=== PATIENT | female | born 1955 | race Caucasian/White ===

== ENCOUNTER 2022-03-11 11:06 | Inpatient (IN) | payer MEDICARE, OTHER ==
[2022-03-11] VITALS (9 sets, daily range): BP systolic 128–200
[~2022-03-11] VITALS: Ht 165.1 cm; Wt 59.9 kg
[~2022-03-11 11:06] MED LIST: GLYB2.5T2 PO
--- NOTE | 2022-03-11 11:10 | NUR ---
BROUGHT IN BY [facility], TRIAGED AND AWAITING ER BED AVAILABILITY
--- NOTE | 2022-03-11 11:55 | NUR ---
PT BROUGHT IN BY AMBULANCE - ACLS. PT A&OX3, PT UNABLE TO STATE YEAR. PER EMT REPORT WAS FOUND LAYING ON GROUND BY CAR, POSSIBLE SYNCOPY EPISODE. pT STATES THAT SHE DOES NOT REMEMBER EVENT. PT HAS A HX OF DIABETES, BUT STATES THAT SHE BUT IS NOT ON MEDICATION OTHER THAN NATURAL HERBS. FACIAL TRAUMA NOTED ON RIGHT SIDE OF FACE. PT C/O PAIN IN BACK AND FACE, C-COLLAR IN PLACE.
--- NOTE | 2022-03-11 11:59 | NUR ---
ER Dr. HEREDIA at bedside examining patient.
--- NOTE | 2022-03-11 12:08 | NUR ---
PT IN CT AT THIS TIME.
[2022-03-11] MEDS ORDERED: BACITRACIN 1 GM OINT TP ONE (12:15)
[2022-03-11] MEDS ORDERED: DIPHTH,PERTUSS(ACELL),TET VAC 0.5 ML VIAL (Tdap) I.M. ONE (12:15)
[2022-03-11] MEDS ORDERED: NS 500 ML IV ONE (12:15)
[2022-03-11 12:42] LABS: BASOPHILS # (AUTO) 0.1 K/uL (0.0-0.2); BASOPHILS % (AUTO) 0.8 % (0.0-2.0); EOSINOPHILS # (AUTO) 0.1 K/uL (0.0-0.4); EOSINOPHILS % (AUTO) 0.9 % (0.0-4.0); HEMOGLOBIN 15.5 g/dL (12.0-16.0); LYMPHOCYTES # (AUTO) 0.7 K/uL (1.0-5.5); LYMPHOCYTES % (AUTO) 6.6 % (20.5-51.5); MEAN CORPUSCULAR HEMOGLOBIN 31 pg (27-31); MEAN CORPUSCULAR HGB CONC 33 % (32-36); MEAN CORPUSCULAR VOLUME 92 fL (79.0-98.0); MONOCYTES # (AUTO) 0.5 K/uL (0.0-1.0); MONOCYTES % (AUTO) 5.1 % (1.7-9.3); NEUTROPHILS # (AUTO) 9.4 K/uL (1.8-7.7); NEUTROPHILS % (AUTO) 86.6 % (40.0-70.0); PLATELET COUNT (AUTO) 282 K/uL (130-430); RED CELL DISTRIBUTION WIDTH 14.2 % (9.0-15.0); WHITE BLOOD COUNT (AUTO) 10.9 K/uL (4.8-10.8)
[2022-03-11 13:05] LABS: ANION GAP 14 (5-15); CALCIUM 9.6 mg/dL (8.4-11.0); CHLORIDE 100 mmol/L (98-107); CREATININE 1.27 mg/dL (0.55-1.30); GFR AFRICAN AMERICAN 54 mL/min (>90); GLUCOSE 166 mg/dL (70-99); UREA NITROGEN, BLOOD 23 mg/dL (8-21)
[2022-03-11 13:15] LABS: INR 1.1 (0.8-1.2); PROTHROMBIN TIME 11.6 SECS (9.5-12.5)
[2022-03-11 13:21] LABS: ALANINE AMINOTRANSFERASE 17 U/L (12-78); ALBUMIN 3.8 g/dL (3.4-4.8); ALCOHOL, BLOOD 4 mg/dL (<10); ASPARTATE AMINOTRANSFERASE 20 U/L (10-37); TOTAL BILIRUBIN 0.7 mg/dL (0.0-1.0)
[2022-03-11 13:22] LABS: ACETAMINOPHEN < 1 ug/mL (1-30)
[2022-03-11] MEDS ORDERED: IOHEXOL 350 mgI/mL, 150 ML INFUS..BTL IV ONE (13:48)
--- NOTE | 2022-03-11 13:48 | NUR ---
PT'S DAUGHTER JD REQUESTED CONSULT WITH A SALESPERSON [employer]. LEFT VM.
[2022-03-11] MEDS ORDERED: cefTRIAXone 1 GM IVPB PREMIX 50 ML IV ONE ×2 (14:00→23:54)
[2022-03-11] MEDS ORDERED: LABETALOL HCL 20 MG/4 ML CARTRIDGE IVP ONE (14:15)
--- NOTE | 2022-03-11 14:33 | NUR ---
PT CAME INTO BED [address] BREATHING FROM CT, SIN REQUESTED RT FOR INTUBATION, RT CAME AND MD REQUESTED REPEAT EKG WELL CRASH CART.
[2022-03-11] MEDS ORDERED: fentaNYL CITRATE/PF 100 MCG/2 ML AMP ONE (14:39)
[2022-03-11] MEDS ORDERED: PROPOFOL DRIP 100 ML IV ONE ×4 (14:44→22:15)
[2022-03-11] MEDS ORDERED: fentaNYL CITRATE/PF 100 MCG/2 ML AMP IVP ONE (14:45)
--- NOTE | 2022-03-11 14:57 | NUR ---
1423 ASSISTED INTUBATION BY ER MD HEREDIA. ETT .06/30 AT [facility]. CO2 DETECTOR CHANGED COLOR YELLOW AND BILATERAL BREATH SOUNDS NOTICED. 1530 PATIENT ON VENT SETTINGS WITH AC 16, VT 400, PEEP +5, FIO2 100%. VENT TO RED OUTLET AND ALARMS ARE AUDIBLE. Addendum: 03/11/22 at 1606 by SDRTJC INTUBATION BY MD COLE
[2022-03-11] MEDS ORDERED: PROPOFOL 200MG/ 20ML VIAL (DIPRIVAN) IV ONE (15:00)
--- NOTE | 2022-03-11 15:25 | NUR ---
LATE ENTRY, AT APPROX 1420, PT CAME BACK FROM CT SCAN WITH CONSTANCE DOWNING. NALINI RN WAS NEARBY BED/HALLWAY AND NOTICED THAT HAD AGONAL BREATHING AND EYES ROLLED BACK. PT UNRESPONSIVE AND APNEIC. AIRWAY PROTECTED AND IMMEDIATELY STARTED BAGGING, DR HEREDIA CALLED TO ROOM. RT CALLED AND CRASH CART PLACED IN ROOM. SECOND IV PLACED TO RIGHT ARM. INTUBATED BY DR COEL. ROWAN RICHARD AT BEDSIDE TO LOG INFO. FAMILY AT BEDSIDE TOO.
--- NOTE | 2022-03-11 15:50 | NUR ---
RT HAGAN AT BEDSIDE FOR ABGS
--- NOTE | 2022-03-11 16:09 | NUR ---
1610 TITRATED FIO2 DOWN TO 50% PER ABG RESULTS, PO2 550.1 mmHg.
--- NOTE | 2022-03-11 17:42 | NUR ---
NO ACUTE CHANGES IN CONDITION, LEVOPHED INFUSING VIA PUMP. PT SEDATED, RESPONSIVE TO PAINFUL STIMULI, EYES CLOSED. FAMILY AT BEDSIDE.
--- NOTE | 2022-03-11 19:30 | NUR ---
Pt report received. Pt sedated, intubated with 7.5 cm ETT, vent settings: A/C, 16, 400, 50, 5. PIV RFA patent and secure with Propofol drip at 30 mcg/kg/min. VSS, NAD noted at this time.
--- NOTE | 2022-03-11 19:34 | NUR ---
COVID AND MRSA SAMPLE COLLECTED AND SENT TO LAB
--- NOTE | 2022-03-11 19:50 | NUR ---
B/P 155/91, pt moving BUE. Propofol drip increased to 35 mcg/kg/min.
--- NOTE | 2022-03-11 20:15 | NUR ---
# 14 FR Jimenez catheter with use of sterile technique. Immediate return of 100 cc clear yumiko urine noted. Bedside drainage bag placed below level of bladder. Urine sample collected and sent to lab. Pt tolerated procedure well. Patient unable to toilet self.
--- NOTE | 2022-03-11 20:30 | NUR ---
Pt moving BUE. Propofol drip increased to 40 mcg/kg/min.
--- NOTE | 2022-03-11 20:40 | NUR ---
Opening notes Received report from TRAM Wilkins RN for continuity of care. Patient was transferred to ICU bed 7 at 2039. Patient is intubated and sedated. Patient's vital signs blood pressure 153/109, heart rate 89, respirations 16, and SPO2 100% on mechanical ventilator. Ventilator settings AC 16, tidal volume 400, FIO2 50%, and peep of 5. Propofol running at 40 mcg/kg/min. Jimenez catheter is in place draining to gravity. Bed is locked and in lowest position, fall and safety precautions is in place.
--- NOTE | 2022-03-11 20:40 | NUR ---
Patient will be admitted to care of Dr. Rivas. Admitted to ICU unit. Will go to room 7. Complete and up to date summary report printed. SBAR report to be given at bedside with opportunity for questions.
--- NOTE | 2022-03-11 21:00 | NUR ---
Paged Dr. Medrano for consult
[2022-03-11] MEDS ORDERED: PROPOFOL DRIP 100 ML IV PRN (21:15)
[2022-03-11 21:20] LABS: BILIRUBIN,URINE NEGATIVE (NEGATIVE); CLARITY/URINE CLEAR (CLEAR); COLOR,URINE YELLOW (YELLOW); GLUCOSE,URINE NEGATIVE (NEGATIVE); KETONES,URINE 1+ (NEGATIVE); LEUKOCYTE ESTERASE ,URINE NEGATIVE (NEGATIVE); NITRITE, URINE NEGATIVE (NEGATIVE); PROTEIN URINE 1+ (NEGATIVE); UROBILINOGEN,URINE 0.2 (0.2-1.0)
[2022-03-11 21:26] LABS: BLOOD, URINE TRACE (NEGATIVE)
[2022-03-11 21:29] LABS: BACTERIA,URINE None Seen /HPF (None Seen); MUCUS,URINE None Seen /LPF (None Seen); WBC,URINE 0-3 /HPF (0-3)
[2022-03-11 21:35] LABS: BARBITURATE, URINE NEGATIVE (NEG <=200); BENZODIAZEPINE, URINE NEGATIVE (NEG <=150); CANNABINOID, URINE NEGATIVE (NEG <=50); COCAINE, URINE NEGATIVE (NEG <=150); METHAMPHETAMINES SCREEN,URINE NEGATIVE (NEG <=500); OPIATE, URINE NEGATIVE (NEG <=100); PHENCYCLIDINE SCREEN,URINE NEGATIVE (NEG <=25); UR TRICYCLIC ANTIDEPRESSANTS NEGATIVE (NEG <=300); URINE AMPHETAMINE NEGATIVE (NEG <=500); URINE METHADONE NEGATIVE (NEG <=200); URINE OXYCODONE SCREEN NEGATIVE (NEG <=100); URINE PROPOXYPHENE SCREEN NEGATIVE (NEG <=300)
--- NOTE | 2022-03-11 22:48 | NUR ---
CONSULTATION PAGED/CALLED Reason for Consultation: TIA Person Who was Notified: Colleen Consulting Physician: Casper Supervisor [employer] Fin[employer] Specialty: Cardiology Ordering Physician: Rob
[2022-03-11] MEDS: ENALAPRILAT DIHYDRATE 1.25 MG/ML VIAL IVP PRN (23:18)
[2022-03-11] MEDS ORDERED: IPRATROPIUM/ALBUTEROL SULFATE 3 ML AMPUL.NEB (DUONEB) INH PRN (23:45)
[2022-03-11] MEDS: cefTRIAXone 1 GM in D5W 50 ML IV SCH (23:55)
[2022-03-11] MEDS: D5/0.45 NS 1,000 ML IV SCH (23:56)
[2022-03-12] VITALS (34 sets, daily range): BP systolic 90–196
[2022-03-12] MEDS: PROPOFOL DRIP 100 ML IV PRN ×4 (01:43→21:38)
[2022-03-12 06:17] LABS: BASOPHILS # (AUTO) 0.1 K/uL (0.0-0.2); BASOPHILS % (AUTO) 0.8 % (0.0-2.0); EOSINOPHILS # (AUTO) 0.2 K/uL (0.0-0.4); EOSINOPHILS % (AUTO) 1.5 % (0.0-4.0); LYMPHOCYTES # (AUTO) 1.3 K/uL (1.0-5.5); MEAN CORPUSCULAR HEMOGLOBIN 31 pg (27-31); MEAN CORPUSCULAR HGB CONC 33 % (32-36); MEAN CORPUSCULAR VOLUME 92 fL (79.0-98.0); MONOCYTES # (AUTO) 0.9 K/uL (0.0-1.0); MONOCYTES % (AUTO) 7.6 % (1.7-9.3); NEUTROPHILS # (AUTO) 9.3 K/uL (1.8-7.7); NEUTROPHILS % (AUTO) 79.1 % (40.0-70.0); PLATELET COUNT (AUTO) 236 K/uL (130-430); RED BLOOD CELL COUNT(AUTO) 4.54 MIL/uL (4.2-6.2); RED CELL DISTRIBUTION WIDTH 14.4 % (9.0-15.0); WHITE BLOOD COUNT (AUTO) 11.8 K/uL (4.8-10.8)
[2022-03-12 06:59] LABS: ALBUMIN 3.2 g/dL (3.4-4.8); CALCIUM 8.9 mg/dL (8.4-11.0); CREATININE 1.12 mg/dL (0.55-1.30); TOTAL BILIRUBIN 0.6 mg/dL (0.0-1.0)
[2022-03-12] MEDS: ENALAPRILAT DIHYDRATE 1.25 MG/ML VIAL IVP PRN (07:49)
[2022-03-12] MEDS: PANTOPRAZOLE SODIUM 40 MG/VIAL (PROTONIX) IVP SCH (08:27)
[2022-03-12] MEDS ORDERED: INSULIN REGULAR, HUMAN 100 UNITS/ML, 3 ML VIAL SUBCUT PRN (09:30)
--- NOTE | 2022-03-12 09:57 | NUR ---
Nutrition Note Kitchen is out of Glucerna 1.2; RD recommends Glucerna 1.5 @ 25 mL/hr (goal) for the time being. Pt will be seen for Initial Assessment 2/3. Thanks! NELDA, MPH, RD
[2022-03-12 10:12] LABS: INR 1.1 (0.8-1.2); PROTHROMBIN TIME 11.5 SECS (9.5-12.5)
--- NOTE | 2022-03-12 10:30 | NUR ---
OGT check placement and verified. glucerna1.5@ 25ml/hr started per ordered. keep hob elevated to prevent aspiration.
[2022-03-12] MEDS ORDERED: SUCCINYLCHOLINE CHLORIDE 20 MG/ML(QUELICIN) IVP ONE (11:00)
[2022-03-12] MEDS ORDERED: ETOMIDATE 20 MG/ 10 ML VIAL (AMIDATE) IVP ONE (11:00)
[2022-03-12] MEDS ORDERED: hydrALAZINE HCL 20 MG/ML VIAL IVP ONE (11:45)
[2022-03-12] MEDS: D5/0.45 NS 1,000 ML IV SCH (13:53)
--- NOTE | 2022-03-12 15:00 | NUR ---
patient family is here updated patient current condition and poc. all question, answered.
--- NOTE | 2022-03-12 15:20 | NUR ---
witnessed picc line RN inserted picc line at right upper arm, aseptic technique performed. cxr verified the placement.
[2022-03-12] MEDS: hydrALAZINE HCL 25 MG TABLET PO SCH ×2 (15:21→21:07)
--- NOTE | 2022-03-12 15:45 | NUR ---
Wound Evaluation: Wound Consult ordered for Low Devonte Score. Patient evaluated for a low Devonte score of 13. Patient was obtunded, sedated, intubated, and received in a Taft Bed with an Isoflex NASEEM mattress. Patient needs to be turned in bed. Skin assessment: 1. Right Forehead, Superior to Periorbital area: Abrasion, present on admission wound site has 100% black scab. No odor, no drainage. Periwound intact. Wound measures 4.8 cm x 1.5 cm. Recommend: No dressing needed. Continue to monitor site every shift. 2. Right Upper Cheek, Lateral to Periorbital area: Abrasion, present on admission wound site has 90% light red scar tissue (healed), 10% black scab. No odor, no drainage. Periwound intact. Wound measures 4.8 cm x 5.8 cm. Recommend: Cover light red tissue site with non-adherent (Telfa pad), also tucking Telfa pad underneath. Continue to monitor site every shift. 3. Right Cheek, Inferior and Distal to Ear: Multiple excoriations, present on admission. Site has 100% black linear scabs. No odor, no drainage. Periwound intact. Recommend: No dressing needed. Continue to monitor site every shift. Recommend reposition patient every 2 hours with pillow support. Elevate, off-load and float bilateral heels with 1 pillow lengthwise under each extremity at all times. Offload pressure areas with pillows for pressure re-distribution. Perform skin care and monitor skin integrity Q shift. Use moisture barrier cream on moisture susceptible areas QID and PRN for soiling. Initiate low air-loss therapy by adding an air pump to the mattress.
[2022-03-12] MEDS: INSULIN REGULAR, HUMAN 100 UNITS/ML, 3 ML VIAL (humuLIN R) SUBCUT PRN (18:11)
--- NOTE | 2022-03-12 18:59 | NUR ---
Notes: all needs mets, no s/s of distress, vital signs stable, afebrile. vent setting ac 16, tv 400, fio2 30%, peep 5. saturation 100%, picc line at right upper arm. no swelling or infiltration noted. Addendum: 03/12/22 at 1916 by [employer], ANJEL HOBBS made rounds and s/w family via phone.
[2022-03-12] MEDS: cefTRIAXone 1 GM in D5W 50 ML IV SCH (22:27)
[2022-03-13] VITALS (31 sets, daily range): BP systolic 100–179
[2022-03-13] MEDS: INSULIN REGULAR, HUMAN 100 UNITS/ML, 3 ML VIAL (humuLIN R) SUBCUT PRN ×2 (00:17→05:33)
[2022-03-13] MEDS: D5/0.45 NS 1,000 ML IV SCH ×2 (02:01→14:24)
[2022-03-13] MEDS: PROPOFOL DRIP 100 ML IV PRN ×4 (02:03→23:06)
[2022-03-13] MEDS: ENALAPRILAT DIHYDRATE 1.25 MG/ML VIAL IVP PRN (02:16)
[2022-03-13] MEDS: hydrALAZINE HCL 25 MG TABLET PO SCH ×4 (05:31→23:52)
[2022-03-13 06:14] LABS: BASOPHILS # (AUTO) 0.1 K/uL (0.0-0.2); BASOPHILS % (AUTO) 0.9 % (0.0-2.0); EOSINOPHILS # (AUTO) 0.2 K/uL (0.0-0.4); EOSINOPHILS % (AUTO) 2.3 % (0.0-4.0); HEMATOCRIT 39.9 % (36-48); HEMOGLOBIN 13.5 g/dL (12.0-16.0); LYMPHOCYTES # (AUTO) 1.2 K/uL (1.0-5.5); LYMPHOCYTES % (AUTO) 13.1 % (20.5-51.5); MEAN CORPUSCULAR HEMOGLOBIN 31 pg (27-31); MEAN CORPUSCULAR HGB CONC 34 % (32-36); MEAN CORPUSCULAR VOLUME 90 fL (79.0-98.0); MONOCYTES # (AUTO) 0.6 K/uL (0.0-1.0); NEUTROPHILS # (AUTO) 7.3 K/uL (1.8-7.7); NEUTROPHILS % (AUTO) 77.7 % (40.0-70.0); PLATELET COUNT (AUTO) 177 K/uL (130-430); RED BLOOD CELL COUNT(AUTO) 4.42 MIL/uL (4.2-6.2); RED CELL DISTRIBUTION WIDTH 13.9 % (9.0-15.0); WHITE BLOOD COUNT (AUTO) 9.4 K/uL (4.8-10.8)
[2022-03-13 07:03] LABS: CALCIUM 8.6 mg/dL (8.4-11.0)
--- NOTE | 2022-03-13 07:25 | NUR ---
RECEIVED REPORT FROM NIGHTSHIFT RN, PT IN BED #7, RESTING, NAD, VSS, AROUSABLE, RASS -3. PT AWAITING ADDITIONAL ASSESSMENTS FOR PLAN OF CARE AND DISPOSITION.
[2022-03-13] MEDS: ENOXAPARIN SODIUM 40 MG/0.4 ML SYRINGE SUBCUT SCH (08:23)
[2022-03-13] MEDS: PANTOPRAZOLE SODIUM 40 MG/VIAL (PROTONIX) IVP SCH (08:24)
--- NOTE | 2022-03-13 11:50 | NUR ---
Dietitian Recommendations * Glucerna 1.5 @ 25mL/hr, Prosource 1x/d via OGT Provides (w/ D5 and prop): 1505 kcal, 65 g PRO, 455ml free water Meets: 117% kcal, 90% of lower end PRO, 71% est water needs * Consider FWF 150mL q6h, or per MD * If D5 or Propofol is DC, or pt extubated, please contact RD to re-assess needs GS, MPH, RD Please refer to RD Assessment for further details. Thanks! Addendum: 03/13/22 at [address] Amended: Links added.
--- NOTE | 2022-03-13 12:09 | NUR ---
RT NOTES 1100 Placed pt on SIMV 12, 400VT, +5, PS 10 30% FIO2 per MD Medrano order, f/b by ABG. Pt saturating 100%. 1140 ABG drawn. results reported to ANJEL Manuel. Pt placed back to AC 16. Pt tolerated SIMV trial today. Pt started opening eyes & moving around. will cont to monitor pt.
--- NOTE | 2022-03-13 19:00 | NUR ---
Opening notes Received report from endorsing morning shift RN for continuity of care. Patient is lying in bed with IVF D5 1/2 NS @75 mL/hr and propofol drip @ 35 mcg/kg/min. Patient's family members is at the bedside. Patient's vital signs blood pressure 150/61, heart rate 67, respirations 17, and SPO2 100% on mechanical ventilator. Ventilator settings AC 16, tidal volume 400, FIO2 30%, and peep of 5. Jimenez catheter is in place draining to gravity. Bed is locked and in lowest position, fall and safety precautions is in place.
[2022-03-13] MEDS ORDERED: hydrALAZINE HCL 25 MG TABLET ONE (19:41)
[2022-03-13] MEDS: cefTRIAXone 1 GM in D5W 50 ML IV SCH (23:05)
[2022-03-14] VITALS (35 sets, daily range): BP systolic 115–192
[2022-03-14] MEDS: hydrALAZINE HCL 20 MG/ML VIAL IVP PRN ×3 (01:33→20:31)
[2022-03-14] MEDS: D5/0.45 NS 1,000 ML IV SCH ×2 (02:51→15:46)
[2022-03-14] MEDS: INSULIN REGULAR, HUMAN 100 UNITS/ML, 3 ML VIAL (humuLIN R) SUBCUT PRN ×2 (05:40→12:34)
[2022-03-14] MEDS: hydrALAZINE HCL 25 MG TABLET PO SCH ×4 (05:41→23:50)
[2022-03-14] MEDS: PROPOFOL DRIP 100 ML IV PRN ×3 (06:31→22:23)
--- NOTE | 2022-03-14 07:28 | NUR ---
SBAR REPORT RECEIVED FROM DARRYL HOBBS, ALL CARES ASSUMED. PT INTUBATED AND SEDATED WITH PROPOFOL DRIP. VENT SETTINGS AC 16, 400, 30%, 5. OG TUBE INFUSING TUBE FEEDING. STONER CATHETER DRAINING TO GRAVITY. PT RESTING WITH EYES CLOSED. BED IN LOW AND LOCKED POSITION.
[2022-03-14 07:53] LABS: BASOPHILS # (AUTO) 0.1 K/uL (0.0-0.2); BASOPHILS % (AUTO) 0.6 % (0.0-2.0); EOSINOPHILS # (AUTO) 0.3 K/uL (0.0-0.4); EOSINOPHILS % (AUTO) 2.8 % (0.0-4.0); HEMATOCRIT 38.1 % (36-48); HEMOGLOBIN 12.9 g/dL (12.0-16.0); LYMPHOCYTES # (AUTO) 1.3 K/uL (1.0-5.5); LYMPHOCYTES % (AUTO) 14.5 % (20.5-51.5); MEAN CORPUSCULAR HEMOGLOBIN 31 pg (27-31); MEAN CORPUSCULAR HGB CONC 34 % (32-36); MONOCYTES # (AUTO) 0.5 K/uL (0.0-1.0); NEUTROPHILS # (AUTO) 6.7 K/uL (1.8-7.7); NEUTROPHILS % (AUTO) 76.1 % (40.0-70.0); PLATELET COUNT (AUTO) 170 K/uL (130-430); RED BLOOD CELL COUNT(AUTO) 4.12 MIL/uL (4.2-6.2); RED CELL DISTRIBUTION WIDTH 14.7 % (9.0-15.0); WHITE BLOOD COUNT (AUTO) 8.8 K/uL (4.8-10.8)
[2022-03-14 07:59] LABS: CALCIUM 8.3 mg/dL (8.4-11.0); CREATININE 0.65 mg/dL (0.55-1.30)
[2022-03-14 08:15] LABS: MEAN CORPUSCULAR VOLUME 92 fL (79.0-98.0)
[2022-03-14] MEDS: PANTOPRAZOLE SODIUM 40 MG/VIAL (PROTONIX) IVP SCH (09:21)
[2022-03-14] MEDS: ENOXAPARIN SODIUM 40 MG/0.4 ML SYRINGE SUBCUT SCH (09:22)
--- NOTE | 2022-03-14 09:45 | NUR ---
RT NOTES Pt became agitated when sedation was turned down, Rn will wait for family to be present during CPAP trial, per their request.
--- NOTE | 2022-03-14 10:03 | NUR ---
RT NOTES Charge Kristy called to notify Rt that family arrived and sedation is being titrated. I will be notified once ready for CPAP trials.
--- NOTE | 2022-03-14 10:37 | NUR ---
RT NOTES On low dosage of sedation, Automatic Splicing Machine Operator Kristy said to initiate CPAP now. Vent to CPAP 5 PS 10. No adverse reactions noted. Dtr walked in, was educated on SBT, when asked, dtr stated that pt is an active-heavy smoker, will communicate this information to Rn and charge weigher.
--- NOTE | 2022-03-14 11:37 | NUR ---
RT NOTES After ABG draw, vent back to AC, H.R (100s) and R.R (high 20s) are elevated. Rn at bedside aware.
--- NOTE | 2022-03-14 11:40 | NUR ---
PT WAS ON CPAP TRIAL FOR APPROXIMATELY ONE HOUR. HR AND RR SLOWLY INCREASED, RT DANGELO SWITCHED VENT BACK TO AC MODE. STARTED INCREASING PROPOFOL AFTER PT WAS BACK ON AC MODE.
[2022-03-14] MEDS ORDERED: NICOTINE 14 MG/24 HR PATCH.TD24 TD ONE (12:00)
--- NOTE | 2022-03-14 19:13 | NUR ---
SBAR REPORT GIVEN TO JORDYN HOBBS, ALL CARES ENDORSED.
[2022-03-14] MEDS: cloNIDine HCL 0.1 MG TABLET GT PRN (21:17)
[2022-03-14] MEDS: ENALAPRILAT DIHYDRATE 1.25 MG/ML VIAL IVP PRN (22:34)
[2022-03-14] MEDS: cefTRIAXone 1 GM in D5W 50 ML IV SCH (23:49)
[2022-03-15] VITALS (33 sets, daily range): BP systolic 106–178
[2022-03-15] MEDS: INSULIN REGULAR, HUMAN 100 UNITS/ML, 3 ML VIAL (humuLIN R) SUBCUT PRN ×3 (00:17→18:04)
[2022-03-15] MEDS: PROPOFOL DRIP 100 ML IV PRN (01:07)
[2022-03-15] MEDS: hydrALAZINE HCL 25 MG TABLET PO SCH ×4 (05:46→23:09)
[2022-03-15] MEDS: D5/0.45 NS 1,000 ML IV SCH ×2 (06:02→20:09)
[2022-03-15 06:50] LABS: CALCIUM 8.5 mg/dL (8.4-11.0); CREATININE 0.56 mg/dL (0.55-1.30)
[2022-03-15 06:56] LABS: BASOPHILS # (AUTO) 0.1 K/uL (0.0-0.2); BASOPHILS % (AUTO) 0.6 % (0.0-2.0); EOSINOPHILS # (AUTO) 0.2 K/uL (0.0-0.4); EOSINOPHILS % (AUTO) 2.1 % (0.0-4.0); HEMATOCRIT 36.4 % (36-48); HEMOGLOBIN 12.2 g/dL (12.0-16.0); LYMPHOCYTES # (AUTO) 1.5 K/uL (1.0-5.5); LYMPHOCYTES % (AUTO) 16.2 % (20.5-51.5); MEAN CORPUSCULAR HEMOGLOBIN 31 pg (27-31); MEAN CORPUSCULAR HGB CONC 33 % (32-36); MEAN CORPUSCULAR VOLUME 93 fL (79.0-98.0); MONOCYTES # (AUTO) 1.1 K/uL (0.0-1.0); MONOCYTES % (AUTO) 12.1 % (1.7-9.3); NEUTROPHILS # (AUTO) 6.3 K/uL (1.8-7.7); PLATELET COUNT (AUTO) 167 K/uL (130-430); RED BLOOD CELL COUNT(AUTO) 3.91 MIL/uL (4.2-6.2); RED CELL DISTRIBUTION WIDTH 14.6 % (9.0-15.0); WHITE BLOOD COUNT (AUTO) 9.1 K/uL (4.8-10.8)
--- NOTE | 2022-03-15 07:23 | NUR ---
End of Shift Note: GCS 7-8, RASS -3, pt attempts to open her eyes now to voice, however, no eye contacts nor following any commands. Propofol was titrated down from 40mcg/kg/ml to 20mcg/kg/ml throughout the noc shift, and pt is now slightly responding to the voice stimuli, still not following any commands. Achieving the sbp goal <150 was a goal for this pt, and was finally able to meet after administering all three different prn antihypertensives (hydralazine, clonidine, enalaprilat), in addition to the scheduled ones. SBP in 130-140s. Otherwise, pt rested, and will continue to monitor. 0715: Reports given to the day shift for continuity of care.
--- NOTE | 2022-03-15 07:28 | NUR ---
SBAR REPORT RECEIVED FROM NIGHT RN, ALL CARES ASSUMED. PT INTUBATED AND SEDATED WITH PROPOFOL DRIP AT 20 MCG/KG/MIN. VENT SETTINGS AC 16, 400, 30%, 5. GLUCERNA 1.5 INFUSING TO OGT. STONER CATHETER DRAINING TO GRAVITY. BED IN LOW AND LOCKED POSITION.
--- NOTE | 2022-03-15 07:40 | NUR ---
RT NOTES Discussed SBT with Rn, she will notify me when to start cpap trials.
[2022-03-15] MEDS: PANTOPRAZOLE SODIUM 40 MG/VIAL (PROTONIX) IVP SCH (08:24)
[2022-03-15] MEDS: ENOXAPARIN SODIUM 40 MG/0.4 ML SYRINGE SUBCUT SCH (08:24)
[2022-03-15] MEDS: NICOTINE 14 MG/24 HR PATCH.TD24 TD SCH (08:25)
--- NOTE | 2022-03-15 09:25 | NUR ---
RT NOTES Coordinated with RN, sedation is off, vent to cpap 5 ps 10. No immediate adverse reactions noted. will monitor pt.
--- NOTE | 2022-03-15 10:30 | NUR ---
DR. ARMIJO GAVE CLEARANCE FOR EXTUBATION AFTER 30 MINUTES T-BAR.
--- NOTE | 2022-03-15 11:20 | NUR ---
SPOKE WITH REBA AT DR. ARMIJO'S EXCHANGE REQUESTING ABG.
--- NOTE | 2022-03-15 11:50 | NUR ---
RT NOTES t-bar Oral sxn done prior to cuff deflation. Pt to t-bar 35% 8L. No adverse reactions noted. will monitor pt.
--- NOTE | 2022-03-15 12:30 | NUR ---
PT AGITATED, MARIAA RT PUT PT BACK ON AC MODE. PRECEDEX STARTED. PROPOFOL DISCONTINUED.
[2022-03-15] MEDS: hydrALAZINE HCL 20 MG/ML VIAL IVP PRN ×2 (12:54→23:12)
--- NOTE | 2022-03-15 17:10 | NUR ---
PT BACK ON T BAR. TOLERATING WELL. VSS.
--- NOTE | 2022-03-15 17:46 | NUR ---
SPOKE WITH QAMAR REQUESTING ORDERS FROM DR. ARMIJO.
--- NOTE | 2022-03-15 18:04 | NUR ---
PT EXTUBATED AT 1800 BY MARIAA RT, PT RR 17-19, VSS. DAUGHTER SUNIL AT BEDSIDE.
--- NOTE | 2022-03-15 19:20 | NUR ---
SBAR REPORT GIVEN TO FRIDA HOBBS, ALL CARES ENDORSED.
--- NOTE | 2022-03-15 21:11 | NUR ---
Spoke with Dr eMdrano via telephone. ABG results provided; no changes in O2 settings, only swallow evaluation in am prior to starting diet. keep patient NPO until cleared.
[2022-03-15] MEDS: cefTRIAXone 1 GM in D5W 50 ML IV SCH (22:23)
[2022-03-16] VITALS (19 sets, daily range): BP systolic 120–172
[2022-03-16] MEDS: hydrALAZINE HCL 25 MG TABLET PO SCH ×3 (05:54→19:36)
[2022-03-16] MEDS: hydrALAZINE HCL 20 MG/ML VIAL IVP PRN ×3 (05:59→23:20)
[2022-03-16 06:33] LABS: BASOPHILS # (AUTO) 0.1 K/uL (0.0-0.2); BASOPHILS % (AUTO) 1.2 % (0.0-2.0); EOSINOPHILS # (AUTO) 0.2 K/uL (0.0-0.4); EOSINOPHILS % (AUTO) 2.8 % (0.0-4.0); HEMATOCRIT 34.7 % (36-48); HEMOGLOBIN 12.1 g/dL (12.0-16.0); LYMPHOCYTES # (AUTO) 1.3 K/uL (1.0-5.5); LYMPHOCYTES % (AUTO) 18.4 % (20.5-51.5); MEAN CORPUSCULAR HEMOGLOBIN 31 pg (27-31); MEAN CORPUSCULAR HGB CONC 35 % (32-36); MEAN CORPUSCULAR VOLUME 89 fL (79.0-98.0); MONOCYTES # (AUTO) 0.8 K/uL (0.0-1.0); MONOCYTES % (AUTO) 11.2 % (1.7-9.3); NEUTROPHILS # (AUTO) 4.8 K/uL (1.8-7.7); NEUTROPHILS % (AUTO) 66.4 % (40.0-70.0); PLATELET COUNT (AUTO) 187 K/uL (130-430); RED BLOOD CELL COUNT(AUTO) 3.89 MIL/uL (4.2-6.2); RED CELL DISTRIBUTION WIDTH 14.3 % (9.0-15.0); WHITE BLOOD COUNT (AUTO) 7.3 K/uL (4.8-10.8)
[2022-03-16 07:04] LABS: CALCIUM 8.5 mg/dL (8.4-11.0); CREATININE 0.69 mg/dL (0.55-1.30)
--- NOTE | 2022-03-16 08:05 | NUR ---
RT NOTES 0805 PT PLACED ON 2L NC. SAT 99%. PT TOLERATING WEL. WILL CONT TO MONITOR. Addendum: 03/16/22 at 0809 by Naomi Vargas RT Amended: Links added.
[2022-03-16] MEDS: ENOXAPARIN SODIUM 40 MG/0.4 ML SYRINGE SUBCUT SCH (08:11)
[2022-03-16] MEDS: PANTOPRAZOLE SODIUM 40 MG/VIAL (PROTONIX) IVP SCH (08:11)
[2022-03-16] MEDS: NICOTINE 14 MG/24 HR PATCH.TD24 TD SCH (08:11)
--- NOTE | 2022-03-16 09:12 | NUR ---
[employer] LATE ENTRY ++++++++++++++++++++++++++++ contact with pt. was made on 03/13/22 IRONING PLEATER receved a message to call pts. family. IRONING PLEATER introduced self to pts. Cristin esteves who just wanted Hospital to know that once pt. is stable, it may be beneficial for pt. to be transfered to contracted hospital, [place]. Dtr. also stated pts. , her dad is competent, but just "Pushes off decisions to " her.
--- NOTE | 2022-03-16 09:43 | NUR ---
Nutrition F/U RD reviewed pts current EMR including diet hx, physician notes, nursing notes, pertinent labs/meds/procedures, care trends and care activity. Short note d/t high workload Subjective Information RD attended ICU rounds and s/w primary RN. Pt was extubated yesterday and Is currently on 2L NC; A&[address] witnessed pt receiving D5@ 75mL/hr (provides [address] noted pt BG are still trending around the 140s-150s. RN said she was receiving D5 to keep her stabilized while she is not eating; pt pending swallow eval. Per EMR review: pt abd soft, non-distended w/ active bowel sounds.Pt is currently not meeting nutritional needs at this time. Current Diet Order/Nutrition Support NPO pending swallow x 1 day % PO intake NPO Last BM 2/4 x 1 NEW Estimated Energy Expenditure (kcals/day) 4019-0935 kcal (25-30 kcal/kg CBW d/t GERIAT) Estimated Protein Required (g/day) 72-90g (1.2-1.5g/kg d/t GERIAT, critically ill) Estimated Fluid Required (l/day) 1.2L (1mL/kcal maintenance) Problem/Etiology/Signs/Symptoms * Altered nutrition-related lab values r/t endocrine dysfunction AEB elevated BG 163, elevated POC B/199 (on-going) Expected Outcomes/Goals EN tolerated at goal rate, EN provides >95% estimated nutritional needs, improvements in skin integrity, nutrition-related labs trending WNL, weight maintenance, BM q 1-3 days Dietitian Recommendations * Advance diet once recommended by TECHNICAL MGR Follow up *High risk: f/u in 2-3 days GS, MPH, RD
[2022-03-16] MEDS: D5/0.45 NS 1,000 ML IV SCH ×2 (09:46→23:19)
--- NOTE | 2022-03-16 09:46 | NUR ---
Dietitian Recommendations * Advance diet once recommended by MASTER BAKER NELDA, MPH, RD Please refer to Nutrition F/U for further details. Thanks!
[2022-03-16] MEDS ORDERED: KCL 20 mEq in 100 mL (PREMIX) 100 ML IV ONE (11:00)
--- NOTE | 2022-03-16 11:08 | NUR ---
Received report to assume care of the patient.
--- NOTE | 2022-03-16 11:08 | NUR ---
CARE ENDORSED TO ANJEL CANTU FOR CHANGE OF ASSIGNMENT AND UNIT. PT VSS. NAD NOTED. PENDING SWALLOW EVAL AND PT CONSULT TODAY. AAOX2. ON 2LPM VIA N/C. BED TO LOWEST POSITION. CALL LIGHT WITHIN REACH. END OF CARE.
--- NOTE | 2022-03-16 11:54 | NUR ---
PICC line dressing changed due to no biopatch present, dated 03/12/22. Site clean without signs of infection.
--- NOTE | 2022-03-16 17:43 | NUR ---
ST EVALUATION COMPLETED. ST TX NOT INDICATED AT THIS TIME. RECOMMEND PO DIET OF PUREE AND THIN LIQUIDS. 1:1 ASSISTANCE AND FULL ASPIRATION PRECAUTIONS.
--- NOTE | 2022-03-16 19:00 | NUR ---
Pt transfered to room 123B with belongings. NO cell phone is with the patient. Pts daughter brought the cell phone in for the pt to see, earlier in this evening, but it did not have a case on it and it was brand new and she didnt want to leave it with the patient in case it got dropped with no case.
--- NOTE | 2022-03-16 19:25 | NUR ---
Report given to oncoming nurse Katie RN for assumption of care.
--- NOTE | 2022-03-16 20:30 | NUR ---
ASSESSMENT COMPLETED PT PLEASANTLY CONFUSED FOLLOWS COMMANDS PLAN OF CARE REVIEWED WILL CONTINUE TO MONITOR AND ASSESS
--- NOTE | 2022-03-16 22:55 | NUR ---
PT FOUND ON FLOOR BY TAX COMPLIANCE MANAGER PT ASSISSTED BACK TO BED WITH THE HELP OF 6 STAFF MEMBERS NO HEAD INURY NOTED PT CONFUSED AT THIS TIME AND PLACE IN RESTRAINTS BP 198/71 HR 95 BLOOD GLUCOSE 165 MD DAVID NOTIFIED WITH NEW ORDERS FOR BILATERAL WRIST RESTRAINTS AND XRAY OF LEFT SHOULDER WILL CONTINUE TO MONITOR AND ASSESS
--- NOTE | 2022-03-16 23:20 | NUR ---
HYDRALAZINE 10MG IVP GIVEN FOR BP 198/71
[2022-03-16] MEDS: cefTRIAXone 1 GM in D5W 50 ML IV SCH (23:26)
--- NOTE | 2022-03-16 23:26 | NUR ---
RADIOLOGY IN TO XRAY RIGHT ARM
[2022-03-16] MEDS: INSULIN REGULAR, HUMAN 100 UNITS/ML, 3 ML VIAL (humuLIN R) SUBCUT PRN (23:29)
[2022-03-17] VITALS (8 sets, daily range): BP systolic 148–192
--- NOTE | 2022-03-17 | NUR ---
FAMILY MEMBER BELTRAN ARCHER NOTIFIED OF PT BEING FOUND ON GROUND
[2022-03-17] MEDS: TEMAZEPAM 7.5 MG CAPSULE PO PRN (03:20)
--- NOTE | 2022-03-17 03:30 | NUR ---
PT RESTLESS BEDALARM SOUNDING PT OUT OF ONE RESTRAINT REALITY ORIENTATION PROVIDED AND PT PLACED BACK TO BED RESTORIL GIVEN
[2022-03-17] MEDS: hydrALAZINE HCL 25 MG TABLET PO SCH ×4 (05:13→18:27)
[2022-03-17] MEDS: INSULIN REGULAR, HUMAN 100 UNITS/ML, 3 ML VIAL (humuLIN R) SUBCUT PRN ×3 (06:14→21:18)
[2022-03-17 06:39] LABS: BASOPHILS # (AUTO) 0.1 K/uL (0.0-0.2); BASOPHILS % (AUTO) 1.2 % (0.0-2.0); EOSINOPHILS # (AUTO) 0.2 K/uL (0.0-0.4); EOSINOPHILS % (AUTO) 2.7 % (0.0-4.0); HEMATOCRIT 34.4 % (36-48); HEMOGLOBIN 11.5 g/dL (12.0-16.0); LYMPHOCYTES % (AUTO) 14.6 % (20.5-51.5); MEAN CORPUSCULAR HEMOGLOBIN 31 pg (27-31); MEAN CORPUSCULAR HGB CONC 34 % (32-36); MEAN CORPUSCULAR VOLUME 92 fL (79.0-98.0); MONOCYTES # (AUTO) 0.7 K/uL (0.0-1.0); MONOCYTES % (AUTO) 10.9 % (1.7-9.3); NEUTROPHILS # (AUTO) 4.6 K/uL (1.8-7.7); NEUTROPHILS % (AUTO) 70.6 % (40.0-70.0); PLATELET COUNT (AUTO) 196 K/uL (130-430); RED BLOOD CELL COUNT(AUTO) 3.73 MIL/uL (4.2-6.2); RED CELL DISTRIBUTION WIDTH 14.5 % (9.0-15.0); WHITE BLOOD COUNT (AUTO) 6.5 K/uL (4.8-10.8)
[2022-03-17 06:55] LABS: CALCIUM 8.6 mg/dL (8.4-11.0); CREATININE 0.54 mg/dL (0.55-1.30)
[2022-03-17] MEDS: ENOXAPARIN SODIUM 40 MG/0.4 ML SYRINGE SUBCUT SCH (09:29)
[2022-03-17] MEDS: PANTOPRAZOLE SODIUM 40 MG/VIAL (PROTONIX) IVP SCH (09:35)
[2022-03-17] MEDS: NICOTINE 14 MG/24 HR PATCH.TD24 TD SCH (09:52)
[2022-03-17] MEDS: cloNIDine HCL 0.1 MG TABLET GT PRN (12:57)
[2022-03-17] MEDS: D5/0.45 NS 1,000 ML IV SCH (13:10)
[2022-03-17] MEDS ORDERED: POTASSIUM CHLORIDE 20 MEQ TAB.PRT.SR PO ONE (14:30)
--- NOTE | 2022-03-17 15:26 | NUR ---
PHYSICAL THERAPY CO-SIGN The Physical Therapy Progress Notes documented by Director Of Audiology have been reviewed. Reviewed/Co-Signed by: Michael Colon Documentation Done by:ROXANNE PUCKETT Addendum: 03/17/22 at 1526 by Michael Colon PT Amended: Links added.
--- NOTE | 2022-03-17 19:30 | NUR ---
PATIENT TO BE DISCHARGED SOON TO [facility] FOLLOWING UP ON ORDER'S. NO NEED FOR RESTRAINT'S PATIENT COMPLIANT EATING PER SELF WITH MINIMAL ASSISTANCE. FAMILY HAS ISSUES WITH PATIENT BEING SENT TO [facility] WISH TO SEND PATIENT TO [facility]. SITTER AT BEDSIDE ASSISTING WITH ADL'S AND FEEDING. BP HIGH THROUGH OUT SHIFT SCHEDULED AND PRN GIVEN. BP DOWN 153/78. EXCESSIVE CONVERSATION AND TEACHING COMPLETED WITH FAMILY. PATIENT DOING MUCH BETTER ORDER STATES TO TRANSFER TO [facility].
[2022-03-17] MEDS: cefTRIAXone 1 GM in D5W 50 ML IV SCH (22:11)
[2022-03-18] MEDS: hydrALAZINE HCL 25 MG TABLET PO SCH ×4 (00:51→17:03)
[2022-03-18] MEDS: D5/0.45 NS 1,000 ML IV SCH ×3 (01:00→22:44)
[2022-03-18 02:00] VITALS: BP_SYST 156
[2022-03-18 07:35] VITALS: BP_SYST 137
[2022-03-18 07:35] LABS: BASOPHILS # (AUTO) 0.1 K/uL (0.0-0.2); BASOPHILS % (AUTO) 1.1 % (0.0-2.0); EOSINOPHILS # (AUTO) 0.2 K/uL (0.0-0.4); EOSINOPHILS % (AUTO) 3.8 % (0.0-4.0); HEMOGLOBIN 11.1 g/dL (12.0-16.0); LYMPHOCYTES # (AUTO) 1.2 K/uL (1.0-5.5); LYMPHOCYTES % (AUTO) 22.2 % (20.5-51.5); MEAN CORPUSCULAR HEMOGLOBIN 31 pg (27-31); MEAN CORPUSCULAR HGB CONC 34 % (32-36); MEAN CORPUSCULAR VOLUME 92 fL (79.0-98.0); MONOCYTES # (AUTO) 0.6 K/uL (0.0-1.0); MONOCYTES % (AUTO) 11.7 % (1.7-9.3); NEUTROPHILS # (AUTO) 3.4 K/uL (1.8-7.7); NEUTROPHILS % (AUTO) 61.2 % (40.0-70.0); PLATELET COUNT (AUTO) 196 K/uL (130-430); RED BLOOD CELL COUNT(AUTO) 3.58 MIL/uL (4.2-6.2); RED CELL DISTRIBUTION WIDTH 14.5 % (9.0-15.0); WHITE BLOOD COUNT (AUTO) 5.5 K/uL (4.8-10.8)
--- NOTE | 2022-03-18 07:35 | NUR ---
OPENING NOTE Received patient laying in bed, awake. Report given by LINO Granado. Patient A/O x1-2 with bouts of confusion, Yoruba speaking. Patient's breathing is even and unlabored on RA. Patient on bedrest with Jimenez draining yellow urine to gravity. PICC to Right upper arm, patent on infusion pump. Bed is locked in lowest position, call light within reach. All needs met, will continue to monitor.
--- NOTE | 2022-03-18 07:59 | NUR ---
CLOSING PATIENT IS LYING IN BED COMFORTABLY, NO S/S SOB, BREATHING EVEN AND NONLABORED. NO S/S OF DISTRESS OR PAIN, SITTER NEXT TO HER BED TO MONITOR SAFETY, PATIENT WAS CONFUSED THOUGHT THE CHAIRMAN CEO, BED AT LOWEST POSITION WITH CALL LIGHT WITHIN REACH. ENDORSE TO INCOMING NURSE.
[2022-03-18] MEDS: ENOXAPARIN SODIUM 40 MG/0.4 ML SYRINGE SUBCUT SCH (08:45)
[2022-03-18] MEDS: NICOTINE 14 MG/24 HR PATCH.TD24 TD SCH (08:45)
[2022-03-18] MEDS: PANTOPRAZOLE SODIUM 40 MG/VIAL (PROTONIX) IVP SCH (09:59)
--- NOTE | 2022-03-18 10:00 | NUR ---
Scheduled IVP medication given per order. Patient stable at this time with sitter at bedside.
[2022-03-18 12:00] VITALS: BP_SYST 160
--- NOTE | 2022-03-18 12:05 | NUR ---
ROUNDS: Patient laying in bed,eating. Patient's breathing is even and unlabored on RA. Patient on bedrest with Jimenez draining yellow urine to gravity. Spoke with daughter regarding patients status and she stated she will be in later to check in on her mom. Bed is locked in lowest position, call light within reach. All needs met, will continue to monitor.
--- NOTE | 2022-03-18 14:41 | NUR ---
BOWLING GREEN Received a call from [facility] Angely requesting a report to start looking for a bed for patient to go to at [facility]. Angely will call back regarding bed information once obtained.
--- NOTE | 2022-03-18 15:00 | NUR ---
JOCELYNE/HECTOR Spoke with Irasema CASANOVA regarding order for [facility] transfer. Irasema stated she will be sending order to [facility] to see if there is a bed available for today. Awaiting for a call from [facility] for further instructions.
[2022-03-18 16:05] VITALS: BP_SYST 153
--- NOTE | 2022-03-18 16:21 | NUR ---
SURGEON CHIEF Alayna SURGEON CHIEF at bedside consulting with patient.
--- NOTE | 2022-03-18 16:51 | NUR ---
MERRILL Received a call from [employer] from [place] . She was requesting patient information so they can initiate the look for a bed at [facility]. Once bed is obtained [facility] will call back with further details.
[2022-03-18] MEDS ORDERED: METOPROLOL SUCCINATE 25 MG TAB.SR.24H (TOPROL XL) PO ONE (17:30)
--- NOTE | 2022-03-18 18:59 | NUR ---
CLOSING NOTE Patient laying in bed, resting. Patient A/O x1-2 with bouts of confusion, Cymro speaking. Patient's breathing is even and unlabored on RA. Patient on bedrest with Jimenez draining yellow urine to gravity. PICC to Right upper arm, patent on infusion pump. Bed is locked in lowest position, call light within reach. All needs met, will Endorse to night time babysitter nurse.
[2022-03-18 20:00] VITALS: BP_SYST 177
[2022-03-18] MEDS: cloNIDine HCL 0.1 MG TABLET GT PRN (20:15)
[2022-03-18] MEDS: cefTRIAXone 1 GM in D5W 50 ML IV SCH (22:10)
[2022-03-18] MEDS: TEMAZEPAM 7.5 MG CAPSULE PO PRN (22:23)
[2022-03-18 23:02] VITALS: BP_SYST 138
[2022-03-19] VITALS: BP_SYST 125
--- NOTE | 2022-03-19 01:52 | NUR ---
TRANSFER NOTES spoke with Branden from [place] to give report, 0010 am. at 0020 taken by ambulance to transfer patient to [facility] via gurney, Jimenez Catheter in place patent and draining clean yellow urine, PICC line on Right Upper Arm, all vital signs within normal limits, all belongings taken with patient.
[2022-03-19] MEDS ORDERED: METOPROLOL SUCCINATE 25 MG TAB.SR.24H (TOPROL XL) PO SCH (09:00)
--- NOTE | 2022-03-19 13:15 | NUR ---
PHYSICAL THERAPY CO-SIGN The Physical Therapy Progress Notes documented by [employer] Back Feeder have been reviewed. Reviewed/Co-Signed by: Michael Colon Documentation Done by:ROXANNE PUCKETT Addendum: 03/19/22 at 1316 by Michael Colon PT Amended: Links added.
== END 2022-03-19 01:52 | disposition short-term general hospital (02) | DRG 207 ==
LOC: SED 11:06 → SIC 16:46 → SMU 03-16 21:44 → STU 03-17 07:49
PROVIDERS: ADMIT Internal Medicine; ATTEND Internal Medicine
PROC: 5A1955Z Respiratory Ventilation, Greater than 96 Consecutive Hours (ICD-10-PCS; principal; 2022-03-11)
PROC: 0BH17EZ Insertion of Endotracheal Airway into Trachea, Via Natural or Artificial Opening (ICD-10-PCS; 2022-03-11)
PROC: 02HV33Z Insertion of Infusion Device into Superior Vena Cava, Percutaneous Approach (ICD-10-PCS; 2022-03-12)
PROC: B548ZZA Ultrasonography of Superior Vena Cava, Guidance (ICD-10-PCS; 2022-03-12)
DX: J96.00 Acute respiratory failure, unspecified whether with hypoxia or hypercapnia (principal); N17.0 Acute kidney failure with tubular necrosis; J44.9 Chronic obstructive pulmonary disease, unspecified; S09.90XA Unspecified injury of head, initial encounter; X58.XXXA Exposure to other specified factors, initial encounter; Z20.822 Contact with and (suspected) exposure to COVID-19; F17.200 Nicotine dependence, unspecified, uncomplicated; E11.9 Type 2 diabetes mellitus without complications; I49.9 Cardiac arrhythmia, unspecified; Z86.73 Personal history of transient ischemic attack (TIA), and cerebral infarction without residual deficits; Z95.0 Presence of cardiac pacemaker; Y93.89 Activity, other specified; Y92.89 Other specified places as the place of occurrence of the external cause; Y99.8 Other external cause status
CPT/HCPCS: 36415; 36600; 70450-TC; 70496; 70498; 71045; 72125-TC; 73030; 76376; 80048; 80053; 80307; 81000; 82140; 82550; 82803-TC; 82962; 83605; 83735; 83880; 84484; 85025; 85610-TC; 85730-TC; 87040; 87070-TC; 87081; 87086; 87205-TC; 90715; 92610-GN; 93005; 93306; 94002; 94003; 94640; 94760; 96365; 97110-GP; 97112-GP; 97116-GP; 97530-GP; 99291; C9113; G0378; G0480; G0481; G0482; J0330; J0360; J0696; J1650; J1815; J2704; J3010; J3480; J3490; J7060; Q9967